=== PATIENT | female | born 1980 | race Two or more races ===

== ENCOUNTER 2023-12-16 22:05 | Emergency (ER) | payer BC ==
[~2023-12-16] VITALS: Ht 170.2 cm; Wt 59.4 kg
[2023-12-16] MEDS ORDERED: ASPI81TA31 PO (23:02)
[2023-12-16 23:06] LABS: BASOPHILS % (AUTO) 0.4 % (0.0-2.0); EOSINOPHILS # (AUTO) 1.8 K/uL (0.0-0.7); EOSINOPHILS % (AUTO) 15.6 % (0.0-7.0); HEMATOCRIT 39.3 % (31.2-41.9); HEMOGLOBIN 13.8 g/dL (10.9-14.3); LYMPHOCYTES # (AUTO) 1.6 K/uL (0.8-4.8); LYMPHOCYTES % (AUTO) 14.3 % (20.5-51.5); MEAN CORPUSCULAR HEMOGLOBIN 30.7 uug (24.7-32.8); MEAN CORPUSCULAR HGB CONC 35 g/dL (32.3-35.6); MEAN CORPUSCULAR VOLUME 87.5 fL (75.5-95.3); MONOCYTES # (AUTO) 0.6 K/uL (0.1-1.30); MONOCYTES % (AUTO) 5.5 % (0.0-11.0); NEUTROPHILS # (AUTO) 7.3 K/uL (1.8-8.9); NEUTROPHILS % (AUTO) 64.2 % (38.5-71.5); PLATELET COUNT (AUTO) 263 K/uL (179-408); RED CELL DISTRIBUTION WIDTH 12.5 % (12.3-17.7); WHITE BLOOD COUNT (AUTO) 11.3 K/uL (3.8-11.8)
[2023-12-16] MEDS ORDERED: PROG50VI3 IM (23:10)
[2023-12-16] MEDS ORDERED: ESTR0.5T PO (23:10)
[2023-12-16] MEDS ORDERED: PREN1COM16 PO (23:10)
[2023-12-16 23:13] LABS: DIFFERENTIAL COMMENT 1
[2023-12-16 23:31] LABS: CALCIUM 9.2 mg/dL (8.5-10.1); CREATININE 0.7 mg/dL (0.6-1.3); POTASSIUM 3.7 mmol/L (3.5-5.1)
[2023-12-16 23:36] LABS: ALBUMIN 3.5 g/dL (3.4-5.0); BILIRUBIN,TOTAL 0.8 mg/dL (0.2-1.0); TOTAL PROTEIN, SERUM 7.5 g/dL (6.4-8.2)
[2023-12-17] MEDS: MORPHINE SULFATE 4 MG/1 ML DISP.SYRIN IV ONE (00:29)
[2023-12-17] MEDS: IV NS 1000 ML 1,000 ML IV ONE (00:30)
[2023-12-17] MEDS ORDERED: ONDANSETRON ODT 4 MG TAB.RAPDIS ONE (00:35)
[2023-12-17] MEDS ORDERED: HYDROCODONE/APAP 5-325MG TABLET ONE (00:36)
[2023-12-17] MEDS: ONDANSETRON 4 MG/2 ML VIAL IV ONE (00:44)
[2023-12-17] MEDS: ONDANSETRON ODT 4 MG TAB.RAPDIS SL ONE (01:13)
[2023-12-17] MEDS: HYDROCODONE/APAP 5-325MG TABLET PO ONE (01:14)
[2023-12-17 01:54] LABS: *BILIRUBIN,URIN NEGATIVE (NEGATIVE); *CLARITY,URINE CLEAR (CLEAR); *COLOR,URINE YELLOW (YELLOW); *KETONES,URINE NEGATIVE (NEGATIVE); *PROTEIN,URINE NEGATIVE (NEGATIVE); *UROBILINOGEN,URINE 0.2 E.U./dl (NORMAL); LEUKOCYTE ESTERASE ,URINE TRACE (NEGATIVE); NITRITE, URINE NEGATIVE (NEGATIVE); PH,URINE 6.5 (5.0-8.0); UGLUCOSE NEGATIVE (NEGATIVE)
[2023-12-17 01:57] LABS: *BLOOD, URINE TRACE (NEGATIVE)
[2023-12-17 03:01] LABS: BACTERIA,URINE FEW /HPF (NONE SEEN); SQUAMOUS EPITHELIAL CELL,UR FEW /HPF (NONE SEEN)
[2023-12-17 03:16] VITALS: BP 99/68; TEMP 98; O2SAT 99
== END 2023-12-17 03:16 | disposition home or self-care (01) ==
LOC: ER 22:10
DX: O26.891 Other specified pregnancy related conditions, first trimester (principal); R10.11 Right upper quadrant pain; R10.2 Pelvic and perineal pain; Z79.899 Other long term (current) drug therapy
CPT/HCPCS: 36415; 70030-TC; 76705; 83605; 83690; 84484; 85025; A4606; A4663; Q0162